=== PATIENT | male | born 1995 | race Caucasian/White ===

== ENCOUNTER 2017-06-13 08:40 | Emergency (ER) | payer OTHER ==
[~2017-06-13] VITALS: Ht 182.8 cm; Wt 136.1 kg
[~2017-06-13 08:40] MED LIST: ATARAX,VISTARIL50 MG PO; AUGMENTIN 875-875 MG PO; CONCERTA54 MG PO; CYCLOBENZAPRINE10 MG PO; DEPAKOTE500 M1 PO; FLEXERIL10 MG PO; IBU800 MG PO; NAPROXEN500 MG PO; PREDNISONE20 M1 PO; TYLENOL W/CODEI1 TA2 PO
== END 2017-06-13 09:56 | disposition home or self-care (01) ==
LOC: ED 08:40
DX: S46.812A Strain of other muscles, fascia and tendons at shoulder and upper arm level, left arm, initial encounter (principal); Z79.899 Other long term (current) drug therapy; Z88.1 Allergy status to other antibiotic agents; Z88.8 Allergy status to other drugs, medicaments and biological substances; V49.88XA Car occupant (driver) (passenger) injured in other specified transport accidents, initial encounter; Y93.89 Activity, other specified; Y92.413 State road as the place of occurrence of the external cause; Y99.9 Unspecified external cause status

== ENCOUNTER 2019-03-12 20:51 | Emergency (ER) | payer MEDICAID ==
[~2019-03-12] VITALS: Ht 182.8 cm; Wt 136.1 kg
[2019-03-12] MEDS ORDERED: DIVALPROEX SOD500 MG PO (20:54)
[2019-03-12] MEDS ORDERED: PREDNISONE10 MG PO (21:11)
== END 2019-03-12 21:25 | disposition home or self-care (01) ==
LOC: ED 20:51
DX: L23.9 Allergic contact dermatitis, unspecified cause (principal); Z79.899 Other long term (current) drug therapy; Z88.1 Allergy status to other antibiotic agents

== ENCOUNTER 2020-03-15 03:04 | Emergency (ER) | payer OTHER ==
[~2020-03-15] VITALS: Ht 182.8 cm; Wt 141.5 kg
[~2020-03-15 03:04] MED LIST changes: +DIVALPROEX SOD500 MG PO; +PREDNISONE10 MG PO
[2020-03-15] MEDS ORDERED: CLARITIN10 MG PO (04:15)
== END 2020-03-15 04:45 | disposition home or self-care (01) ==
LOC: ED 03:04
DX: B34.9 Viral infection, unspecified (principal); Z20.828 Contact with and (suspected) exposure to other viral communicable diseases; Z88.1 Allergy status to other antibiotic agents; Z79.899 Other long term (current) drug therapy

== ENCOUNTER 2021-05-18 19:22 | Emergency (ER) | payer OTHER ==
[~2021-05-18] VITALS: Ht 180.3 cm; Wt 122.5 kg
[~2021-05-18 19:22] MED LIST changes: +CLARITIN10 MG PO
[2021-05-18 21:48] LABS: MEAN CELL VOLUME 81.8 fl (80.0-94.0); MEAN CORPUSCULAR HGB 27.5 pg (27.0-31.0); MEAN CORPUSCULAR HGB CONC 33.6 g/dl (33.0-37.0); MEAN PLATELET VOLUME 10.6 fl (9.6-12.3); PLATELET COUNT AUTOMATED 197 10*3/uL (130-400); RED BLOOD COUNT 5.38 10*6/uL (4.50-5.90); RED CELL DISTRI WIDTH 14.1 % (0-14.5); WHITE BLOOD COUNT 8.2 10*3/uL (4.8-10.8)
[2021-05-18 22:03] LABS: ALBUMIN 3.3 gm/dl (3.1-4.5); ALKALINE PHOSPHATASE 48 U/L (45-117); BUN 9 mg/dl (7-24); CHLORIDE 105 mmol/L (98-107); CREATININE 0.87 mg/dL (0.70-1.30); POTASSIUM 3.8 mmol/L (3.5-5.1); SGOT/AST 50 IU/L (3-35); SGPT/ALT 81 U/L (12-78); SODIUM 135 mmol/L (136-145); TOTAL PROTEIN 7.3 gm/dL (6.4-8.2)
[2021-05-18 22:25] LABS: ATYPICAL LYMPHS 12 % (0-0); PLATELET SUFFICIENCY NORMAL (NORMAL); TOTAL CELLS COUNTED 100 #CELLS
[2021-05-19] MEDS ORDERED: AUGMENTIN 875-875 MG PO (01:08)
== END 2021-05-19 01:10 | disposition home or self-care (01) ==
LOC: ED 19:22
PROVIDERS: Emergency Medicine
DX: B34.9 Viral infection, unspecified (principal); Z20.822 Contact with and (suspected) exposure to COVID-19; E86.0 Dehydration; K08.89 Other specified disorders of teeth and supporting structures; Z88.1 Allergy status to other antibiotic agents; Z79.899 Other long term (current) drug therapy

== ENCOUNTER 2022-03-06 21:58 | Emergency (ER) | payer SELFPAY ==
[2022-03-06 22:48] LABS: BASO % 0.3 % (0.0-1.0); EOS # 0.1 10*3/uL (0.0-0.4); EOS % 0.5 % (1.0-4.0); LYMPH # 1.2 10*3/uL (1.3-4.4); LYMPH % 10.1 % (27.0-41.0); MEAN CELL VOLUME 87.5 fl (80.0-94.0); MEAN CORPUSCULAR HGB 29.4 pg (27.0-31.0); MEAN CORPUSCULAR HGB CONC 33.6 g/dl (33.0-37.0); MEAN PLATELET VOLUME 10.9 fl (9.6-12.3); MONO # 0.6 10*3/uL (0.1-1.0); MONO % 5.1 % (3.0-9.0); NEUT # 9.6 10*3/uL (2.3-7.9); NEUT % 83.8 % (47.0-73.0); PLATELET COUNT AUTOMATED 275 10*3/uL (130-400); RED BLOOD COUNT 5.03 10*6/uL (4.50-5.90); RED CELL DISTRI WIDTH 12.9 % (0-14.5); WHITE BLOOD COUNT 11.4 10*3/uL (4.8-10.8)
[2022-03-06 23:05] LABS: ALKALINE PHOSPHATASE 41 U/L (45-117); BUN 16 mg/dl (7-24); CHLORIDE 108 mmol/L (98-107); CREATININE 1.04 mg/dL (0.70-1.30); LIPASE 167 U/L (73-393); SGOT/AST 11 IU/L (3-35); SGPT/ALT 26 U/L (12-78); SODIUM 140 mmol/L (136-145); TOTAL PROTEIN 7.4 gm/dL (6.4-8.2)
== END 2022-03-07 01:12 | disposition home or self-care (01) ==
LOC: ED 21:58
PROVIDERS: Emergency Medicine
DX: S06.0X0A Concussion without loss of consciousness, initial encounter (principal); Z88.1 Allergy status to other antibiotic agents; Z79.899 Other long term (current) drug therapy; W22.8XXA Striking against or struck by other objects, initial encounter; Y93.89 Activity, other specified; Y92.89 Other specified places as the place of occurrence of the external cause; Y99.8 Other external cause status

== ENCOUNTER 2022-05-01 16:43 | Emergency (ER) | payer OTHER ==
[~2022-05-01] VITALS: Ht 182.8 cm; Wt 122.5 kg
[2022-05-01 20:07] LABS: BASO % 0.4 % (0.0-1.0); EOS # 0.1 10*3/uL (0.0-0.4); EOS % 2.2 % (1.0-4.0); HEMATOCRIT 48.7 % (42.0-52.0); LYMPH # 1.1 10*3/uL (1.3-4.4); LYMPH % 19.5 % (27.0-41.0); MEAN CELL VOLUME 89.5 fl (80.0-94.0); MEAN CORPUSCULAR HGB 29.4 pg (27.0-31.0); MEAN CORPUSCULAR HGB CONC 32.9 g/dl (33.0-37.0); MEAN PLATELET VOLUME 10.7 fl (9.6-12.3); MONO # 0.9 10*3/uL (0.1-1.0); MONO % 16.5 % (3.0-9.0); NEUT # 3.4 10*3/uL (2.3-7.9); PLATELET COUNT AUTOMATED 213 10*3/uL (130-400); RED BLOOD COUNT 5.44 10*6/uL (4.50-5.90); RED CELL DISTRI WIDTH 13.5 % (0-14.5); WHITE BLOOD COUNT 5.6 10*3/uL (4.8-10.8)
[2022-05-01 20:24] LABS: ALKALINE PHOSPHATASE 31 U/L (46-116); BUN 10 mg/dl (9-23); CHLORIDE 100 mmol/L (98-107); CREATININE 1.01 mg/dL (0.70-1.30); POTASSIUM 3.9 mmol/L (3.4-5.1); SGPT/ALT 31 U/L (10-49); SODIUM 137 mmol/L (136-145); TOTAL PROTEIN 7.5 gm/dL (6.0-8.0)
[2022-05-01 20:52] LABS: BACTERIA TRACE; MUCOUS 2+; WBC 0-2 wbc/hpf (0-5)
[2022-05-01 21:08] LABS: BILIRUBIN Negative (Negative); BLOOD Negative (Negative); CLARITY Clear (Clear); COLOR Yellow (Yellow); GLUCOSE Negative (Negative); KETONE Negative (Negative); LEUKO ESTERASE Negative (Negative); NITRITE Negative (Negative); UROBILINOGEN 0.2 E.U./dl (0.0-1.0)
[2022-05-01] MEDS ORDERED: ONDANSETRON4 MG SL (21:26)
== END 2022-05-01 21:54 | disposition home or self-care (01) ==
LOC: ED 16:43
PROVIDERS: Nurse Practitioner Family
DX: A08.4 Viral intestinal infection, unspecified (principal); Z88.1 Allergy status to other antibiotic agents; Z88.8 Allergy status to other drugs, medicaments and biological substances

== ENCOUNTER 2023-03-24 11:24 | Emergency (ER) | payer OTHER ==
[~2023-03-24 11:24] MED LIST changes: +ONDANSETRON4 MG SL
[2023-03-24] MEDS ORDERED: CEPHALEXIN500 M1 PO (11:58)
== END 2023-03-24 13:28 | disposition home or self-care (01) ==
LOC: ED 11:24
DX: S61.211A Laceration without foreign body of left index finger without damage to nail, initial encounter (principal); S60.411A Abrasion of left index finger, initial encounter; Z88.8 Allergy status to other drugs, medicaments and biological substances; W26.0XXA Contact with knife, initial encounter; Y93.89 Activity, other specified; Y92.89 Other specified places as the place of occurrence of the external cause; Y99.8 Other external cause status

== ENCOUNTER 2023-10-25 13:29 | Emergency (ER) | payer OTHER ==
[~2023-10-25] VITALS: Ht 182.8 cm; Wt 136.1 kg
[~2023-10-25 13:29] MED LIST changes: +CEPHALEXIN500 M1 PO
[2023-10-25] MEDS ORDERED: AVPAK AZITHROM250 M1 PO (15:33)
[2023-10-25] MEDS ORDERED: AZITHROMYCIN 250 MG TAB PO ONE (15:35)
== END 2023-10-25 18:43 | disposition home or self-care (01) ==
LOC: ED 13:29
DX: J40 Bronchitis, not specified as acute or chronic (principal); Z20.822 Contact with and (suspected) exposure to COVID-19; Z88.8 Allergy status to other drugs, medicaments and biological substances

== ENCOUNTER 2023-11-26 07:55 | Emergency (ER) | payer OTHER ==
[~2023-11-26] VITALS: Ht 182.8 cm; Wt 131.5 kg
[~2023-11-26 07:55] MED LIST changes: +AVPAK AZITHROM250 M1 PO
[2023-11-26] MEDS ORDERED: Ondansetron Hydrochloride 4 MG/2 ML VIAL IV ONE (09:25)
[2023-11-26] MEDS ORDERED: SODIUM CHLORIDE 0.9% 1,000 ML IV ONE (09:25)
[2023-11-26 10:00] LABS: BASO % 0.3 % (0.0-1.0); EOS # 0.2 10*3/uL (0.0-0.4); HEMATOCRIT 48.2 % (42.0-52.0); LYMPH # 3.2 10*3/uL (1.3-4.4); LYMPH % 33.5 % (27.0-41.0); MEAN CELL VOLUME 86.8 fl (80.0-94.0); MEAN CORPUSCULAR HGB 28.5 pg (27.0-31.0); MEAN CORPUSCULAR HGB CONC 32.8 g/dl (33.0-37.0); MEAN PLATELET VOLUME 10.3 fl (9.6-12.3); MONO # 0.6 10*3/uL (0.1-1.0); MONO % 6.1 % (3.0-9.0); NEUT # 5.6 10*3/uL (2.3-7.9); NEUT % 57.8 % (47.0-73.0); PLATELET COUNT AUTOMATED 267 10*3/uL (130-400); RED BLOOD COUNT 5.55 10*6/uL (4.50-5.90); RED CELL DISTRI WIDTH 13.4 % (0-14.5); WHITE BLOOD COUNT 9.6 10*3/uL (4.8-10.8)
[2023-11-26 10:06] LABS: BILIRUBIN Negative (Negative); BLOOD Negative (Negative); CLARITY Clear (Clear); COLOR Yellow (Yellow); GLUCOSE Negative (Negative); KETONE Negative (Negative); LEUKO ESTERASE Negative (Negative); NITRITE Negative (Negative); PH 5.5 (4.5-8.0); SPECIFIC GRAVITY 1.025 (1.001-1.030); UROBILINOGEN 0.2 E.U./dl (0.0-1.0)
[2023-11-26 10:17] LABS: ALKALINE PHOSPHATASE 48 U/L (46-116); BUN 14 mg/dl (9-23); CHLORIDE 108 mmol/L (98-107); LIPASE 41 U/L (12-53); POTASSIUM 4.3 mmol/L (3.4-5.1); SGPT/ALT 28 U/L (5-49); TOTAL PROTEIN 7.7 gm/dL (6.0-8.0)
[2023-11-26 10:19] LABS: BACTERIA TRACE; RBC 0-2 rbc/hpf (0-2)
[2023-11-26] MEDS ORDERED: Dicyclomine Hydrochloride 20 MG/10 ML OSYR PO STA (11:04)
[2023-11-26] MEDS ORDERED: Lidocaine Hydrochloride 15 ML UDC PO STA (11:04)
[2023-11-26] MEDS ORDERED: MG-AL HYDROXIDE/SIMETICONE 30 ML UDC PO STA (11:04)
== END 2023-11-26 13:33 | disposition home or self-care (01) ==
LOC: ED 07:55
PROVIDERS: Internal Medicine
DX: R10.30 Lower abdominal pain, unspecified (principal); R11.2 Nausea with vomiting, unspecified; F12.90 Cannabis use, unspecified, uncomplicated; Z91.048 Other nonmedicinal substance allergy status; Z88.1 Allergy status to other antibiotic agents

== ENCOUNTER 2024-01-31 11:57 | Emergency (ER) | payer OTHER ==
[~2024-01-31] VITALS: Ht 182.8 cm; Wt 136.1 kg
[2024-01-31] MEDS ORDERED: OMEPRAZOLE MAGN20 MG PO (12:15)
[2024-01-31] MEDS ORDERED: methylPREDNISolone sod succ 125 MG VIAL IV ONE (12:35)
[2024-01-31] MEDS ORDERED: ACETAMINOPHEN 325 MG TAB PO ONE (12:35)
[2024-01-31] MEDS ORDERED: SODIUM CHLORIDE 0.9% 1,000 ML IV ONE (12:35)
[2024-01-31] MEDS ORDERED: Ondansetron Hydrochloride 4 MG/2 ML VIAL IV ONE (12:35)
[2024-01-31 12:54] LABS: BASO % 0.4 % (0.0-1.0); EOS # 0.1 10*3/uL (0.0-0.4); EOS % 0.7 % (1.0-4.0); HEMATOCRIT 44.5 % (42.0-52.0); LYMPH # 1.3 10*3/uL (1.3-4.4); LYMPH % 17.6 % (27.0-41.0); MEAN CELL VOLUME 84.4 fl (80.0-94.0); MEAN CORPUSCULAR HGB 28.3 pg (27.0-31.0); MEAN CORPUSCULAR HGB CONC 33.5 g/dl (33.0-37.0); MEAN PLATELET VOLUME 10.7 fl (9.6-12.3); MONO # 0.9 10*3/uL (0.1-1.0); NEUT # 4.8 10*3/uL (2.3-7.9); PLATELET COUNT AUTOMATED 238 10*3/uL (130-400); RED BLOOD COUNT 5.27 10*6/uL (4.50-5.90); RED CELL DISTRI WIDTH 13.5 % (0-14.5); WHITE BLOOD COUNT 7.1 10*3/uL (4.8-10.8)
[2024-01-31 13:17] LABS: ALKALINE PHOSPHATASE 42 U/L (46-116); BUN 10 mg/dl (9-23); CHLORIDE 103 mmol/L (98-107); POTASSIUM 4.1 mmol/L (3.4-5.1); SGPT/ALT 37 U/L (5-49); TOTAL PROTEIN 7.7 gm/dL (6.0-8.0)
[2024-01-31 14:04] LABS: BILIRUBIN Negative (Negative); BLOOD Negative (Negative); CLARITY Cloudy (Clear); COLOR Yellow (Yellow); GLUCOSE Negative (Negative); KETONE Trace (Negative); LEUKO ESTERASE Negative (Negative); NITRITE Negative (Negative); SPECIFIC GRAVITY >= 1.030 (1.001-1.030)
[2024-01-31] MEDS ORDERED: DECADRON4 MG PO (14:37)
== END 2024-01-31 14:38 | disposition home or self-care (01) ==
LOC: ED 11:57
PROVIDERS: Nurse Practitioner
DX: U07.1 COVID-19 (principal); R11.0 Nausea; Z91.048 Other nonmedicinal substance allergy status; Z88.8 Allergy status to other drugs, medicaments and biological substances

== ENCOUNTER 2024-10-17 07:56 | Emergency (ER) | payer OTHER ==
[~2024-10-17] VITALS: Ht 185.4 cm; Wt 147.1 kg
[~2024-10-17 07:56] MED LIST changes: +DECADRON4 MG PO; +OMEPRAZOLE MAGN20 MG PO
[2024-10-17] MEDS ORDERED: PREDNISONE20 M1 PO (08:15)
[2024-10-17] MEDS ORDERED: TRIAMCINOLONE430 GM TD (08:15)
[2024-10-17] MEDS ORDERED: methylPREDNISolone sod succ 125 MG VIAL IM ONE (08:30)
[2024-10-17] MEDS ORDERED: methylPREDNISolone sod succ 1,000 MG/16 ML VIAL IM ONE (08:30)
[2024-10-17] MEDS ORDERED: Water, Sterile 10 ML VIAL ONE (08:49)
== END 2024-10-17 08:48 | disposition home or self-care (01) ==
LOC: ED 07:56
DX: L23.7 Allergic contact dermatitis due to plants, except food (principal); Z91.048 Other nonmedicinal substance allergy status; Z88.1 Allergy status to other antibiotic agents

== ENCOUNTER 2025-05-02 14:09 | Emergency (ER) | payer SELFPAY ==
[~2025-05-02] VITALS: Ht 182.8 cm; Wt 140.6 kg
[~2025-05-02 14:09] MED LIST changes: +TRIAMCINOLONE430 GM TD
[2025-05-02] MEDS ORDERED: predniSONE 20 MG TAB PO ONE (15:00)
[2025-05-02] MEDS ORDERED: Amoxicillin/Clavulanate Pota 875 MG TAB PO ONE (15:00)
[2025-05-02] MEDS ORDERED: LORATADINE 10 MG TAB PO ONE (15:00)
[2025-05-02] MEDS ORDERED: AMOX-CLAV 875-1 EACH PO (16:17)
[2025-05-02] MEDS ORDERED: PREDNISONE20 M1 PO (16:17)
== END 2025-05-02 16:23 | disposition home or self-care (01) ==
LOC: ED 14:09
DX: J06.9 Acute upper respiratory infection, unspecified (principal); Z20.822 Contact with and (suspected) exposure to COVID-19; Z88.8 Allergy status to other drugs, medicaments and biological substances